=== PATIENT | female | born 1985 | race Caucasian/White ===

== ENCOUNTER → 2019-09-16 | Outpatient (CLI) | payer BC ==
[2019-09-16 09:19] LABS: BASOPHILS % 0.3 % (0.0-2.0); CHLORIDE 107 mEq/L (98-107); EOSINOPHILS % 0.8 % (0.0-5.0); HEMOGLOBIN. 11.1 g/dL (12.0-16.0); LYMPHOCYTES % 19.2 % (20.0-50.0); MEAN CORPUSCULAR HEMOGLOBIN 28.2 pg (28.0-32.0); MEAN CORPUSCULAR VOLUME 83.8 fL (81.0-99.0); MEAN PLATELET VOLUME 8.2 fl (7.4-10.4); MONOCYTES % 4.8 % (2.0-8.0); NEUTROPHILS % 74.9 % (40.0-76.0); PLATELET 261 x1000/uL (130-400); RED BLOOD CELL COUNT 3.94 mill/uL (4.2-5.4)
[2019-09-16 09:36] LABS: D-DIMER 0.79 mg/L FEU (<0.50); PARTIAL THROMBOPLASTIN TIME 24.8 sec (23.4-31.0); PROTHROMBIN TIME 9.8 sec (9.6-11.0)
[2019-09-17 13:11] LABS: A/G RATIO 0.8 (0.7-1.7); ALBUMIN 2.7 g/dL (2.9-4.4); ALPHA-1-GLOBULIN 0.4 g/dL (0.0-0.4); ALPHA-2-GLOBULIN 0.9 g/dL (0.4-1.0); BETA GLOBULIN 1.3 g/dL (0.7-1.3); GAMMA GLOBULINS 1.1 g/dL (0.4-1.8); GLOBULIN TOTAL 3.6 g/dL (2.2-3.9); M-SPIKE Not Observed g/dL (Not Observed); TOTAL PROTEIN SERUM 6.3 g/dL (6.0-8.5)
== END | disposition home or self-care (01) ==
LOC: LAB 07:07
PROVIDERS: ATTEND Obstetrics & Gynecology Obstetrics
DX: O99.019 Anemia complicating pregnancy, unspecified trimester (principal); O26.619 Liver and biliary tract disorders in pregnancy, unspecified trimester; N11.0 Nonobstructive reflux-associated chronic pyelonephritis; E87.4 Mixed disorder of acid-base balance; Z3A.00 Weeks of gestation of pregnancy not specified
CPT/HCPCS: 36415; 80053; 82248; 83036; 84155; 84165; 84450; 84460; 84550; 85025; 85379; 85384

== ENCOUNTER 2019-09-19 13:04 | Observation (INO) | payer BC ==
[~2019-09-19] VITALS: Ht 64 cm; Wt 102.1 kg
[2019-09-19] MEDS ORDERED: HYDRALAZINE 20MG/ML VIAL IV PRN (13:30)
[2019-09-19] MEDS ORDERED: LABETALOL HCL 5MG/ML VIAL 20ML IV PRN ×3 (13:30)
[2019-09-19] MEDS ORDERED: MAGNESIUM 20 G PREMIX (L & D) 500 ML IV SCH (13:34)
[2019-09-19 13:45] LABS: BASOPHILS % 0.4 % (0.0-2.0); EOSINOPHILS % 1.2 % (0.0-5.0); HEMATOCRIT. 32.2 % (36.0-48.0); HEMOGLOBIN. 10.8 g/dL (12.0-16.0); LYMPHOCYTES % 22.9 % (20.0-50.0); MEAN CORPUSCULAR HEMOGLOBIN 28.2 pg (28.0-32.0); MEAN CORPUSCULAR VOLUME 83.9 fL (81.0-99.0); MEAN PLATELET VOLUME 8.8 fl (7.4-10.4); MONOCYTES % 4.2 % (2.0-8.0); NEUTROPHILS % 71.3 % (40.0-76.0); PLATELET 251 x1000/uL (130-400); RED BLOOD CELL COUNT 3.84 mill/uL (4.2-5.4); RED CELL DISTRIBUTION WIDTH 15.1 % (11.6-14.6)
[2019-09-19] MEDS ORDERED: TERBUTALINE SULFATE 1MG/ML VIAL SUBCUT PRN (13:45)
[2019-09-19 13:48] LABS: CHLORIDE 108 mEq/L (98-107)
[2019-09-19 13:51] LABS: CLARITY URINE CLEAR (CLEAR); COLOR URINE YELLOW (YELLOW); KETONES URINE NEGATIVE (NEGATIVE); LEUKOCYTE ESTERASE URINE NEGATIVE (NEGATIVE); NITRITE URINE NEGATIVE (NEGATIVE); OCCULT BLOOD URINE NEGATIVE (NEGATIVE); PH URINE 5.5 (4.5-8.0); PROTEIN URINE NEGATIVE (NEGATIVE); SPECIFIC GRAVITY URINE 1.016 (1.005-1.030); UROBILINOGEN URINE 0.2 E.U./dL (0.2-1.0)
[2019-09-19] MEDS: BETAMETHASONE ACET/BETAMET 30 MG/5 ML VIAL IM SCH (13:57)
[2019-09-19] MEDS ORDERED: MAGNESIUM 4 G PREMIX 100 ML IV SCH (14:00)
[2019-09-19 14:02] LABS: D-DIMER 0.73 mg/L FEU (<0.50); INR 0.9; PARTIAL THROMBOPLASTIN TIME 24.3 sec (23.4-31.0); PROTHROMBIN TIME 9.4 sec (9.6-11.0)
[2019-09-19] MEDS ORDERED: ACETAMINOPHEN 325MG TABLET PO NR (20:23)
[2019-09-19] MEDS: LABETALOL HCL 200MG TABLET PO SCH (20:42)
[2019-09-20] MEDS ORDERED: MAGNESIUM 20 G PREMIX (L & D) 500 ML IV SCH (08:36)
[2019-09-20] MEDS ORDERED: ACETAMINOPHEN 325MG TABLET PO PRN (08:45)
[2019-09-20 08:57] VITALS: BP 139/90
[2019-09-20] MEDS ORDERED: MAGNESIUM SULFATE 20 GM in DEXT 5% WATER 500 ML IV SCH (09:15)
[2019-09-20] MEDS: LABETALOL HCL 200MG TABLET PO SCH ×2 (09:19→22:08)
[2019-09-20] MEDS: BETAMETHASONE ACET/BETAMET 30 MG/5 ML VIAL IM SCH (14:06)
[2019-09-21] MEDS: LABETALOL HCL 200MG TABLET PO SCH (08:37)
== END 2019-09-21 13:00 | disposition home or self-care (01) ==
LOC: 8 EST LDRP 13:04 → 8 EST A/PP 09-20 15:45
PROVIDERS: ADMIT Obstetrics & Gynecology Obstetrics; ATTEND Obstetrics & Gynecology Obstetrics
DX: O16.2 Unspecified maternal hypertension, second trimester (principal); Z3A.26 26 weeks gestation of pregnancy
CPT/HCPCS: 36415; 80053; 81003; 83735; 84550; 85025; 85379; 85384; 85610; 85730; 93005; 96365; 96366; 96372; 96375; G0378; J0702; J3475; J3490; J7060; 96360; 96361; 99281

== ENCOUNTER 2019-11-21 16:03 | Observation (INO) | payer BC, MEDICAID ==
[~2019-11-21] VITALS: Ht 162.6 cm; Wt 106.1 kg
[2019-11-21] MEDS ORDERED: LABE200T28 MT (16:52)
[2019-11-21 17:10] LABS: BASOPHILS % 0.6 % (0.0-2.0); EOSINOPHILS % 0.8 % (0.0-5.0); HEMATOCRIT. 34.1 % (36.0-48.0); HEMOGLOBIN. 11.7 g/dL (12.0-16.0); LYMPHOCYTES % 23.2 % (20.0-50.0); MEAN CORPUSCULAR HEMOGLOBIN 28.7 pg (28.0-32.0); MEAN CORPUSCULAR VOLUME 83.6 fL (81.0-99.0); MONOCYTES % 5.2 % (2.0-8.0); NEUTROPHILS % 70.2 % (40.0-76.0); PLATELET 230 x1000/uL (130-400); RED BLOOD CELL COUNT 4.09 mill/uL (4.2-5.4); RED CELL DISTRIBUTION WIDTH 15.4 % (11.6-14.6)
[2019-11-21 17:15] LABS: CHLORIDE 109 mEq/L (98-107)
[2019-11-21 17:50] LABS: D-DIMER 1.67 mg/L FEU (<0.50); INR 0.9; PARTIAL THROMBOPLASTIN TIME 24.7 sec (23.4-31.0); PROTHROMBIN TIME 9.7 sec (9.6-11.0)
[2019-11-21 18:38] LABS: CLARITY URINE CLEAR (CLEAR); COLOR URINE YELLOW (YELLOW); KETONES URINE TRACE (NEGATIVE); LEUKOCYTE ESTERASE URINE NEGATIVE (NEGATIVE); NITRITE URINE NEGATIVE (NEGATIVE); OCCULT BLOOD URINE NEGATIVE (NEGATIVE); PH URINE 5.5 (4.5-8.0); PROTEIN URINE NEGATIVE (NEGATIVE); SPECIFIC GRAVITY URINE 1.005 (1.005-1.030); UROBILINOGEN URINE 0.2 E.U./dL (0.2-1.0)
== END 2019-11-21 18:50 | disposition home or self-care (01) ==
LOC: 8 EST LDRP 16:03
PROVIDERS: ADMIT Obstetrics & Gynecology Obstetrics; ATTEND Obstetrics & Gynecology Obstetrics
DX: O10.913 Unspecified pre-existing hypertension complicating pregnancy, third trimester (principal); O09.523 Supervision of elderly multigravida, third trimester; Z79.899 Other long term (current) drug therapy; Z3A.35 35 weeks gestation of pregnancy
CPT/HCPCS: 36415; 76805; 76815; 80053; 81003; 84550; 85025; 85379; 85384; 85610; 85730; 99281; G0378

== ENCOUNTER 2019-12-15 08:11 | Inpatient (IN) | payer BC, MEDICAID ==
[~2019-12-15] VITALS: Ht 162.6 cm; Wt 95.3 kg
[~2019-12-15 08:11] MED LIST: LABE200T28 MT
[2019-12-15] MEDS ORDERED: DEXT 5%/LR + PITOCIN 20UNITS/L 1,000 ML IV SCH ×2 (09:14→10:32)
[2019-12-15] MEDS ORDERED: DEXT 5%/LACTATED RINGERS 1,000 ML IV SCH (09:14)
[2019-12-15] MEDS ORDERED: DEXT 5%/LR + PITOCIN 20UNITS/L 1,000 ML IV ONE (09:14)
[2019-12-15] MEDS ORDERED: LIDOCAINE HCL 1% 20ML VIAL (Pyxis) INJ INFIL SCH (09:15)
[2019-12-15] MEDS ORDERED: LIDOCAINE HCL 1% 20ML VIAL (Pyxis) INJ ONE (09:34)
[2019-12-15 09:57] LABS: BASOPHILS % 0.5 % (0.0-2.0); EOSINOPHILS % 0.6 % (0.0-5.0); HEMATOCRIT. 38.2 % (36.0-48.0); HEMOGLOBIN. 12.9 g/dL (12.0-16.0); LYMPHOCYTES % 19.7 % (20.0-50.0); MEAN CORPUSCULAR HEMOGLOBIN 28.6 pg (28.0-32.0); MEAN CORPUSCULAR VOLUME 84.4 fL (81.0-99.0); MEAN PLATELET VOLUME 9.7 fl (7.4-10.4); MONOCYTES % 4.3 % (2.0-8.0); NEUTROPHILS % 74.9 % (40.0-76.0); PLATELET 222 x1000/uL (130-400); RED BLOOD CELL COUNT 4.52 mill/uL (4.2-5.4); RED CELL DISTRIBUTION WIDTH 15.3 % (11.6-14.6)
[2019-12-15 10:02] LABS: INR 0.9; PARTIAL THROMBOPLASTIN TIME 23.7 sec (23.4-31.0); PROTHROMBIN TIME 9.4 sec (9.6-11.0)
[2019-12-15 10:12] LABS: CHLORIDE 105 mEq/L (98-107)
[2019-12-15] MEDS ORDERED: RHO(D) IMMUNE GLOBULIN 300 MCG/SYR IM PRN (10:45)
[2019-12-15] MEDS ORDERED: IBUPROFEN 400MG TABLET PO PRN (10:45)
[2019-12-15] MEDS ORDERED: BENZOCAINE/LANOLIN/ALOE VERA SPRAY TOP PRN (10:45)
[2019-12-15] MEDS ORDERED: HEMORRHOIDAL SUPP PR PRN (10:45)
[2019-12-15] MEDS ORDERED: LANOLIN OINT 7GM TUBE TOP PRN (10:45)
[2019-12-15 10:59] LABS: HEPATITIS B SURFACE ANTIGEN NEGATIVE
[2019-12-15] MEDS: IBUPROFEN 800MG TABLET PO PRN ×2 (11:10→15:48)
[2019-12-15] MEDS ORDERED: MISOPROSTOL 200MCG TABLET RC ONE (12:00)
[2019-12-15 14:45] VITALS: BP 152/80
[2019-12-15 15:52] LABS: CLARITY URINE CLEAR (CLEAR); COLOR URINE YELLOW (YELLOW); KETONES URINE TRACE (NEGATIVE); LEUKOCYTE ESTERASE URINE NEGATIVE (NEGATIVE); METHADONE URINE SCREEN NEGATIVE (NEGATIVE); NITRITE URINE NEGATIVE (NEGATIVE); OCCULT BLOOD URINE NEGATIVE (NEGATIVE); OPIATES URINE SCREEN NEGATIVE (NEGATIVE); PH URINE 6.5 (4.5-8.0); PROTEIN URINE 1+ (NEGATIVE); SPECIFIC GRAVITY URINE 1.016 (1.005-1.030); UROBILINOGEN URINE 0.2 E.U./dL (0.2-1.0)
[2019-12-15 15:53] LABS: *AMPHETAMINES SCREEN URINE NEGATIVE (NEGATIVE); *BARBITURATES SCREEN URINE NEGATIVE (NEGATIVE); *BENZODIAZEPINES SCREEN URINE NEGATIVE (NEGATIVE); *COCAINE SCREEN URINE NEGATIVE (NEGATIVE); CANNABINOID URINE SCREEN NEGATIVE (NEGATIVE); PHENCYCLIDINE URINE SCREEN NEGATIVE (NEGATIVE)
[2019-12-15 19:30] VITALS: BP 148/91
[2019-12-15] MEDS ORDERED: DOCUSATE SODIUM 100MG CAPSULE PO SCH (21:00)
[2019-12-15] MEDS: LABETALOL HCL 200MG TABLET PO SCH (21:08)
[2019-12-15 23:30] VITALS: BP 144/95
[2019-12-15 23:35] VITALS: BP 138/88
[2019-12-16 04:00] VITALS: BP 144/98
[2019-12-16 04:05] VITALS: BP 136/82
[2019-12-16 07:32] LABS: HEMOGLOBIN 10.9 g/dL (12.0-16.0)
[2019-12-16 07:35] VITALS: BP 140/90
[2019-12-16] MEDS: IBUPROFEN 800MG TABLET PO PRN (08:57)
[2019-12-16] MEDS: LABETALOL HCL 200MG TABLET PO SCH (08:58)
[2019-12-16] MEDS ORDERED: PRENATAL VIT/FE FUMARATE/FA TABLET PO SCH (09:00)
== END 2019-12-16 14:10 | disposition home or self-care (01) | DRG 807 ==
LOC: OBSVTOIN 08:11 → 8 EST LDRP 08:11 → 8EST 14:15
PROVIDERS: ADMIT Obstetrics & Gynecology Obstetrics; ATTEND Obstetrics & Gynecology Obstetrics
PROC: 10D07Z6 Extraction of Products of Conception, Vacuum, Via Natural or Artificial Opening (ICD-10-PCS; principal; 2019-12-15)
DX: O16.4 Unspecified maternal hypertension, complicating childbirth (principal); Z37.0 Single live birth; O69.81X0 Labor and delivery complicated by cord around neck, without compression, not applicable or unspecified; Z3A.39 39 weeks gestation of pregnancy
CPT/HCPCS: 36415; 80053; 80305; 81003; 84550; 85014; 85018; 85025; 86592; 86703; 86762; 86850; 86900; 87340; 99281; J2590; J3490; J7121

== ENCOUNTER → 2025-02-13 | Outpatient (CLI) | payer BC, MEDICAID ==
[~2025-02-13] MED LIST changes: -LABE200T28 MT; +LABE200T9 MT
[2025-02-13 10:55] LABS: BASOPHILS % 1.5 % (0.0-2.0); EOSINOPHILS % 2.4 % (0.0-5.0); HEMATOCRIT. 27.1 % (36.0-48.0); HEMOGLOBIN. 8.1 g/dL (12.0-16.0); LYMPHOCYTES % 31.9 % (20.0-50.0); MEAN CORPUSCULAR HEMOGLOBIN 17.9 pg (28.0-32.0); MEAN CORPUSCULAR HGB CONC 29.8 g/dL (31.0-37.0); MEAN PLATELET VOLUME 7.3 fl (7.4-10.4); MONOCYTES % 5.1 % (2.0-8.0); NEUTROPHILS % 59.1 % (40.0-76.0); PLATELET 378 x1000/uL (130-400); RED BLOOD CELL COUNT 4.51 mill/uL (4.2-5.4); RED CELL DISTRIBUTION WIDTH 18.7 % (11.6-14.6); WHITE BLOOD COUNT 6.5 x1000/uL (4.5-11.0)
[2025-02-13 10:57] LABS: CLARITY URINE CLEAR (CLEAR); COLOR URINE YELLOW (YELLOW); GLUCOSE URINE NEGATIVE (NEGATIVE); KETONES URINE NEGATIVE (NEGATIVE); LEUKOCYTE ESTERASE URINE 1+ (NEGATIVE); NITRITE URINE NEGATIVE (NEGATIVE); OCCULT BLOOD URINE NEGATIVE (NEGATIVE); PROTEIN URINE NEGATIVE (NEGATIVE); SPECIFIC GRAVITY URINE 1.022 (1.005-1.030); UROBILINOGEN URINE 0.2 E.U./dL (0.2-1.0)
[2025-02-13 11:00] LABS: ADD RBC MORPHOLOGY YES; DIFFERENTIAL COMMENT 1
[2025-02-13 11:19] LABS: MUCUS URINE 3+ /lpf (< = 2+); SQUAMOUS EPITHELIAL CELL URINE 2+ /lpf (RARE/1+)
[2025-02-13 11:21] LABS: RBC URINE NONE SEEN /hpf (0-2); WBC URINE 0-2 /hpf (0-2)
[2025-02-13 11:22] LABS: BACTERIA URINE 1+
[2025-02-13 11:46] LABS: HEPATITIS B SURFACE AB 526.9 mIU/mL (<10)
[2025-02-13 11:58] LABS: HEPATITIS B SURFACE ANTIGEN NEGATIVE (Negative)
[2025-02-13 12:53] LABS: CHLORIDE 105 mEq/L (98-107); POTASSIUM 3.9 mEq/L (3.5-5.1); SODIUM 140 mEq/L (136-145)
[2025-02-13 12:54] LABS: CARBON DIOXIDE 24 mEq/L (21-32)
[2025-02-13 12:59] LABS: CREATININE 0.6 mg/dL (0.6-1.0)
[2025-02-13 13:00] LABS: GLUCOSE 89 mg/dL (70-105)
[2025-02-13 13:01] LABS: ALANINE AMINOTRANSFERASE 11 IU/L (10-49); ALBUMIN 4.3 g/dL (3.2-4.8); URIC ACID 4.6 mg/dL (3.1-7.8)
[2025-02-13 13:02] LABS: ASPARTATE AMINOTRANSFERASE 14 IU/L (<34); CHOLESTEROL 134 mg/dL (<200); LDL CHOLESTEROL 74 mg/dL (5-100); THYROID STIMULATING HORMONE 0.91 uIU/mL (0.55-4.78); TRIGLYCERIDE 114 mg/dL (0-150); UREA NITROGEN BLOOD 7 mg/dL (9-23)
[2025-02-13 13:03] LABS: HDL CHOLESTEROL 51 mg/dL (>65)
[2025-02-13 13:04] LABS: BILIRUBIN TOTAL 0.4 mg/dL (0.1-1.0); PROTEIN TOTAL 7.4 g/dL (6.0-8.3)
[2025-02-13 17:05] LABS: HYPOCHROMASIA 3+; MICROCYTOSIS 3+; PLATELET ESTIMATE NORMAL
[2025-02-13 17:06] LABS: ANISOCYTOSIS 1+
[2025-02-14 07:08] LABS: HEPATITIS C AB Non Reactive (Non Reactive); T4 THYROXINE 7.1 ug/dL (4.5-12.0)
== END | disposition home or self-care (01) ==
LOC: LAB 09:48
PROVIDERS: ATTEND Internal Medicine Gastroenterology
DX: K73.9 Chronic hepatitis, unspecified (principal); E66.01 Morbid (severe) obesity due to excess calories; Z13.1 Encounter for screening for diabetes mellitus; Z00.00 Encounter for general adult medical examination without abnormal findings
CPT/HCPCS: 36415; 80053; 80061; 81003; 83036; 84436; 84443; 84550; 85025; 86706; 86803; 87340

== ENCOUNTER → 2025-02-25 | Outpatient (CLI) | payer BC ==
[2025-02-25 11:35] LABS: FOLIC ACID (FOLATE) SERUM 18.59 ng/mL (>5.38); VITAMIN B12 SERUM 362 pg/mL (211-911)
== END | disposition home or self-care (01) ==
LOC: LAB 10:34
PROVIDERS: ATTEND Internal Medicine Gastroenterology
DX: D64.9 Anemia, unspecified (principal)
CPT/HCPCS: 36415; 82607; 82728; 82746; 83021; 83540; 83550; 85044; 85660